=== PATIENT | female | born 1995 | race Caucasian/White ===

== ENCOUNTER 2017-01-20 19:56 | Emergency (ER) | payer SELFPAY ==
[2017-01-20 20:23] VITALS: BP 113/74
[2017-01-20 20:57] LABS: APPEARANCE,URINE CLEAR; BILIRUBIN,URINE NEGATIVE (NEGATIVE); GLUCOSE, URINE NEGATIVE (NEGATIVE); KETONES,URINE NEGATIVE (NEGATIVE); LEUKOCYTE ESTERASE,URINE NEGATIVE (NEGATIVE); NITRITE,URINE NEGATIVE (NEGATIVE); PROTEIN,URINE NEGATIVE (NEGATIVE); URINE SPECIFIC GRAVITY 1.001; UROBILINOGEN,URINE NEGATIVE mg/dL (<2.0)
[2017-01-20] MEDS ORDERED: DEXAMETHASONE SOD PHOS INJ 10 MG/1 ML VIAL IM ONE (22:41)
[2017-01-20] MEDS ORDERED: TRAMADOL HCL 50 MG TABLET PO ONE (22:42)
--- NOTE | 2017-01-20 22:46 | ER Document Report ---
ED General - General Chief Complaint: Back Pain Stated Complaint: BACK PAIN Time Seen by Provider: 01/20/17 22:00 Notes: Patient is a 21-year-old female who presents with complaint of low back pain. This been there for 2 days. She is never had this problem before. She denies any injuries. No weakness or numbness going into her legs. She says she occasionally has a sharp pain that shoots down her left leg. No loss of bowel control. No dysuria. No urinary retention. No fevers. No history of IV drug abuse. No other complaints at this time. Patient denies any chance that she could be . TRAVEL OUTSIDE OF THE [place] IN LAST 30 DAYS: No Past Medical History - Social History Smoking Status: Never Smoker Frequency of alcohol use: None Drug Abuse: None Family History: Reviewed & Not Pertinent Patient has suicidal ideation: No Patient has homicidal ideation: No Renal/ Medical History: Denies: Hx Peritoneal Dialysis Surgical Hx: Negative Review of Systems - Review of Systems Notes: My Normal Review Basic REVIEW OF SYSTEMS: CONSTITUTIONAL : Denies fever, chills, or sweats. Denies recent illness. RESPIRATORY: Denies cough, cold, or chest congestion. Denies shortness of breath, difficulty breathing, or wheezing. GASTROINTESTINAL: Denies abdominal pain. Denies nausea, vomiting, or diarrhea. GENITOURINARY: Denies difficulty urinating, painful urination, burning, frequency, or blood in urine. FEMALE GENITOURINARY: Denies vaginal bleeding, abnormal or irregular periods. MUSCULOSKELETAL: Low back pain. SKIN: Denies rash or skin lesions. NEUROLOGICAL: Denies altered mental status or loss of consciousness. Denies weakness or paralysis or loss of use of either side. Denies problems with gait or speech. Denies sensory or motor loss. ALL OTHER SYSTEMS REVIEWED AND NEGATIVE. Physical Exam - Vital signs Vitals: Temp Pulse Resp BP Pulse Ox 98.2 F 79 18 113/74 100 01/20/17 20:18 01/20/17 20:18 01/20/17 20:18 01/20/17 20:18 01/20/17 20:18 - Notes Notes: General Appearance: Well nourished, alert, cooperative, no acute distress, moderate obvious discomfort. Vitals: reviewed, See vital signs table. Head: no swelling or tenderness to the head Eyes: PERRL, EOMI, Conjuctiva clear Abdomen: Normal BS, soft, No rigidity, No abdominal tenderness, No guarding, no rebound, no abdominal masses, no organomegaly Back: Reproducible pain palpation over the sacroiliac junction. Most her pain is over the left sacroiliac junction. There is no redness or warmth or swelling over the skin. Extremities: strength 5/5 in all extremities, good pulses in all extremities, no swelling or tenderness in the extremities, no edema. Skin: warm, dry, appropriate color, no rash Neuro: speech clear, oriented x 3, normal affect, responds appropriately to questions. Good strength with plantar dorsiflexion of both feet against resistance. Good distal sensation. Course - Re-evaluation Re-evalutation: 01/21/17 07:24 Patient has a lot of pain in her sacroiliac joint. She has no risk factors for infection. She is not a drug abuser. She does not have a fever. Unclear exactly why she has pain of this area. I will place her on pain medications for the next 3 days. Informed her that if her symptoms are not improving then she needs to return to the ER for reevaluation. I encouraged her to still take Motrin and Tylenol at home as well to help reduce the inflammation. She has no signs of spinal cord impingement. She has good strength in both her extremities. She has no loss of bowel control or urinary retention. She has no numbness into her legs. Informed her that she must return to the ER immediately if she develops any of the above-mentioned symptoms. Patient and her mother agree with plan and patient will be discharged home. Dictation of this chart was performed using voice recognition software; therefore, there may be some unintended grammatical errors. - Vital Signs Vital signs: Temp Pulse Resp BP Pulse Ox 98.2 F 79 16 113/74 100 01/20/17 20:18 01/20/17 20:18 01/20/17 21:19 01/20/17 20:18 01/20/17 20:18 Discharge - Discharge Clinical Impression: Back pain Qualifiers: Back pain location: low back pain Chronicity: acute Back pain laterality: bilateral Sciatica presence: without sciatica Qualified Code(s): M54.5 - Low back pain Condition: Good Disposition: HOME, SELF-CARE Instructions: Oral Narcotic Medication ([facility]) Additional Instructions: The exact cause of your back pain is not 100% clear at this time. Most of your pain is at the sacroiliac joint. Very rarely can people have infections of the sacroiliac joint. Infections are usually in people who use IV drugs and also fevers. You have no risk factors for this type of infection. Nonetheless it is extremely important that you return to the ER immediately if you have fevers , worsening pain, weakness into your legs, numbness into your legs and feet, loss of control of your bowel function, or inability to urinate. I have given you a shot of steroids. I will also place you on pain medication. Please continue take Motrin and Tylenol at home as well. If your symptoms are not improving within 3 days you should return to the ER or follow-up closely with your doctor for close reevaluation. Prescriptions: Tramadol HCl [Ultram 50 mg Tablet] 50 mg PO Q6HP PRN #20 tablet PRN Reason: Forms: Return to School
== END 2017-01-20 23:20 | disposition home or self-care (01) ==
LOC: ER 19:56
DX: M54.5 Low back pain (principal); M54.9 Dorsalgia, unspecified
CPT/HCPCS: 81001; 99283

== ENCOUNTER 2017-01-28 08:19 | Emergency (ER) | payer SELFPAY ==
[2017-01-28 08:27] VITALS: BP 113/74
--- NOTE | 2017-01-28 08:47 | ER Document Report ---
HPI - HPI Onset: Last week Onset/Duration: Gradual, Persistent Quality of pain: Achy Pain Level: 3 Context: 21 yo female c/o left low back pain, onset last week, now having to hold it stiffly and seems to be going up higher in her back. No radiculopathy, no fever , no IV drug use. No UTI sx. Associated Symptoms: None Exacerbated by: Movement Relieved by: Denies Similar symptoms previously: No Recently seen / treated by doctor: Yes - ROS ROS below otherwise negative: Yes Systems Reviewed and Negative: Yes All other systems reviewed and negative - DERM Skin Color: Normal Past Medical History - General Information source: Patient - Social History Smoking Status: Never Smoker Frequency of alcohol use: None Drug Abuse: None Lives with: Family Family History: Reviewed & Not Pertinent - Medical History Medical History: Negative Renal/ Medical History: Denies: Hx Peritoneal Dialysis Surgical Hx: Negative Vertical Provider Document - CONSTITUTIONAL Agree With Documented VS: Yes Exam Limitations: No Limitations General Appearance: No Apparent Distress - INFECTION CONTROL TRAVEL OUTSIDE OF THE [place] IN LAST 30 DAYS: No - HEENT HEENT: Normocephalic - NECK Neck: Supple - RESPIRATORY Respiratory: Breath Sounds Normal, No Respiratory Distress O2 Sat by Pulse Oximetry: 99 - CARDIOVASCULAR Cardiovascular: Regular Rate, Regular Rhythm - GI/ABDOMEN Gastrointestinal: Abdomen Soft, Abdomen Non-Tender - BACK Back: Normal Inspection. negative: CVA Tenderness-Right, CVA Tenderness-Left Notes: tender left lumbar muscles - MUSCULOSKELETAL/EXTREMETIES Musculoskeletal/Extremeties: MAEW, FROM, Tender - see above - NEURO Level of Consciousness: Awake, Alert Motor/Sensory: No Motor Deficit, No Sensory Deficit Deep Tendon Reflexes: 2+ - ugo ankle and patellar - DERM Integumentary: Warm, Dry Course - Vital Signs Vital signs: Temp Pulse Resp BP Pulse Ox 98.3 F 68 14 113/74 99 01/28/17 08:23 01/28/17 08:23 01/28/17 08:23 01/28/17 08:23 01/28/17 08:23 Discharge - Discharge Clinical Impression: Lumbar back sprain Qualifiers: Encounter type: initial encounter Qualified Code(s): S33.5XXA - Sprain of ligaments of lumbar spine, initial encounter Condition: Good Disposition: HOME, SELF-CARE Instructions: Low Back Pain ([facility]), Muscle Relaxers ([facility]), Muscle Strain ([facility]), Warm Packs ([facility]) Additional Instructions: warm compress to er if worse Please complete the patient satisfaction survey if you get one, and return it.. If you do not receive a survey, then you can go to the [facility] website, [email or web address] and place your comments about your very good care. Thank you very much. It was a pleasure being your medical provider today. Prescriptions: Ibuprofen [Motrin 600 mg Tablet] 600 mg PO Q8HP PRN #30 tablet PRN Reason: Cyclobenzaprine HCl [Flexeril 10 Mg Tablet] 10 mg PO TIDP PRN #20 tablet PRN Reason:
[2017-01-28] MEDS ORDERED: ACETAMINOPHEN 325 MG TABLET PO ONE (08:48)
[2017-01-28] MEDS ORDERED: IBUPROFEN 600 MG TABLET PO ONE (08:48)
[2017-01-28] MEDS ORDERED: CYCLOBENZAPRINE HCL 10 MG TABLET PO ONE (08:48)
== END 2017-01-28 09:05 | disposition home or self-care (01) ==
LOC: ER 08:19
DX: S33.5XXA Sprain of ligaments of lumbar spine, initial encounter (principal); M54.5 Low back pain; X58.XXXA Exposure to other specified factors, initial encounter
CPT/HCPCS: 99283